=== PATIENT | female | born 1985 | race Caucasian/White ===

== ENCOUNTER 2016-08-17 07:01 | Inpatient (IN) ==
[2016-08-17] MEDS ORDERED: CARDIZEM IV ONE ×3 (07:17→07:47)
[2016-08-17] MEDS ORDERED: NS 1,000 ML IV ONE (07:17)
[2016-08-17 07:38] LABS: MANUAL DIFF NEEDED? NO
[2016-08-17 07:44] LABS: BASO% 0.1 % (0.0-0.8); EOS# 0.11 X1000 (0.0-0.7); EOS% 1.6 % (0.0-10.0); HEMATOCRIT 40.8 % (37.0-47.0); HEMOGLOBIN 13.7 g/dL (12.0-16.0); LYMPH# 2.07 X1000 (1.2-3.4); MCH 28.5 PG (27-31); MCHC 33.6 g/dL (33-37); MONO# 0.39 X1000 (0.11-0.59); MONO% 5.6 % (1.7-9.3); MPV 10.6 FL (7.4-10.4); NEUT% 62.7 % (42.2-75.2); PLT 247 X1000 (130-400)
[2016-08-17 07:54] LABS: INR 0.94; PROTIME 9.8 Seconds (9.2-11.7); PTT 26.8 Seconds (22.0-36.0)
[2016-08-17 08:04] LABS: AGAP 14; ALBUMIN 4.2 g/dL (3.5-5.0); ALKALINE PHOSPHATASE 61 U/L (32-104); BUN 15 mg/dL (8-22); CALCIUM 8.9 mg/dL (8.8-10.2); CHLORIDE 102 mmol/L (98-107); CK PROFILE 99 U/L (24-173); COSMO 283; GOT 21 U/L (10-30); GPT 23 U/L (10-36); MAGNESIUM 2.1 mg/dL (1.5-2.7); POTASSIUM 3.7 mmol/L (3.5-5.1); SODIUM 141 mmol/L (136-145); TCO2 25 mmol/L (25-35); TOTAL BILIRUBIN 0.33 mg/dL (0.20-1.00); TOTAL PROTEIN 8.3 g/dL (6.3-8.3)
[2016-08-17 08:23] LABS: URINE CULTURE NEEDED? NO; URINE MICRO REVIEW NEEDED? NO; URINE SOURCE CLEAN CATCH
[2016-08-17 08:24] LABS: BILIRUBIN URINE NEGATIVE (NEGATIVE); BLOOD URINE NEGATIVE (NEGATIVE); COLOR STRAW; GLUCOSE URINE NEGATIVE (NEGATIVE); LEUKOCYTES URINE NEGATIVE (NEGATIVE); NITRITE URINE NEGATIVE (NEGATIVE); PROTEIN URINE NEGATIVE (NEGATIVE); SP GRAVITY URINE 1.013; TURBIDITY URINE CLEAR (CLEAR); UROBILINOGEN URINE NORMAL (NORMAL)
[2016-08-17 08:24] LABS: UR AMPHETAMINES QUAL NONE DETECTED (NONE DETECT); UR BARBITUATES QUAL NONE DETECTED (NONE DETECT); UR BENZODIAZEPIN QUAL NONE DETECTED (NONE DETECT); UR CANNABINOIDS QUAL PRESUMPTIVE POSITIVE (NONE DETECT); UR COCAINE QUAL NONE DETECTED (NONE DETECT); UR METHADONE QUAL NONE DETECTED (NONE DETECT); UR OPIATES QUAL NONE DETECTED (NONE DETECT); UR OXYCODONE QUAL NONE DETECTED (NONE DETECT); UR PCP QUAL NONE DETECTED (NONE DETECT)
[2016-08-17 08:25] LABS: UR EPITHELIAL CELLS <10 /HPF (<10); URINE BACTERIA NEGATIVE /HPF; URINE RBC <10 /HPF (<10); URINE WBC <10 /HPF (<10)
[2016-08-17] MEDS: CARDIZEM 100 MG/NS 100 MG/100 ML IVPB IV SCH ×3 (08:33→09:50)
--- NOTE | 2016-08-17 08:50 | Diag Imaging Result Document ---
PROCEDURE NAME: CHEST-PORTABLE - 08/17/2016 SINGLE FRONTAL RADIOGRAPH OF THE CHEST: COMPARISON: 08/17/2012. FINDINGS: The lungs are grossly clear. There is no discrete pleural fluid collection or evidence of pneumothorax. The cardiomediastinal silhouette and upper airway are grossly unremarkable. IMPRESSION: No evidence of acute chest pathology.
[2016-08-17] MEDS ORDERED: ZOFRAN ONE (08:59)
[2016-08-17] MEDS ORDERED: ATIVAN ONE (09:00)
[2016-08-17] MEDS ORDERED: ZOFRAN IV ONE (09:10)
[2016-08-17] MEDS ORDERED: ATIVAN IV ONE (09:11)
--- NOTE | 2016-08-17 09:36 | ED EKG INTERP ---
This chart was entered by Loree Haskins Scribe, acting as scribe for Ja See MD. EKG Interpretation - EKG Time of EKG reading by physician:: 07:14 EKG Read and Signed by:: Ja See EKG Interpretation (*Must complete 3 of following elements*): Abnormal Rate: 151 Rhythm: A-FIB W/RVR Prior EKG Comparison: changes noted This chart was documented by the indicated scribe, (Loree Haskins Scribe) and accurately reflects the services I performed and decisions made by me, Ja See MD, as attested by the provider's signature.
--- NOTE | 2016-08-17 09:38 | PROVIDER DOCUMENTATION ---
This chart was entered by Loree Haskins Scribe, acting as scribe for Ja See MD. HPI-Chest Pain - General Chief Complaint: Palpitations Stated Complaint: abnormal heart rate/heaviness in chest Time Seen by Provider: 08/17/16 07:06 Source: patient Allergies/Adverse Reactions: Patient Allergies Allergy/AdvReac Type Severity Reaction Status Date / Time No Known Allergies Allergy Verified 09/12/15 17:08 Home Medications: Home Medication List Medication Instructions Recorded Confirmed Last Taken Type Zolpidem Tartrate [Ambien] 10 mg PO QHS 09/12/15 09/12/15 Unknown History Acetaminophen with Codeine 1 each PO Q6H PRN PRN #18 tablet 09/13/15 Unknown Rx [Tylenol with Codeine #3 Tablet] Ciprofloxacin HCl [Cipro] 500 mg PO BID #14 tablet 09/13/15 Unknown Rx Metronidazole [Flagyl] 500 mg PO TID #20 tablet 09/13/15 Unknown Rx Naproxen Sodium [Naprelan] 500 mg PO BID PC #60 mg 09/13/15 Unknown Rx - History of Present Illness-CP Nature of Presenting Problem: PT IS A 31YOF PRESENTING TO THE ED C/O HEART RACING. PT STATES SHE WOKE THE MORNING AND HEART HEART WAS RACING. SHE HAS SOME MINOR DISCOMFORT AND DYSPNEA BUT DENIES ANY FEVER, COUGH, N/V/D OR OTHER COMPLAINTS AT THIS TIME Location: reports: central Chest Pain Radiation: reports: no radiation Quality of Pain: reports: dull Severity in ED: moderate, severe Onset/Duration: just prior to arrival Timing: still present Context/Activities at Onset: reports: light activity Modifying Factors: improves with: nothing Associated Symptoms: reports: shortness of breath. denies: abdominal pain, diaphoresis, nausea, vomiting Nitro Today/Relief: no nitro taken today Aspirin Treatment Today: no aspirin today Prior Chest Pain/Cardiac Workup: reports: no prior chest pain Similar Symptoms Previously?: No Recently Seen Here or By Another Healthcare Provider: No Review of Systems - Adult - REVIEW OF SYSTEMS - ADULT Constitutional: reports: no symptoms reported Eyes: reports: no symptoms reported Ears, Nose, Mouth & Throat: reports: no symptoms reported Cardiovascular: reports: see HPI, chest pain, palpitations. denies: syncope Respiratory: reports: no symptoms reported Gastrointestinal: reports: no symptoms reported Genitourinary: reports: no symptoms reported Musculoskeletal: reports: no symptoms reported Integumentary: reports: no symptoms reported Neurological: reports: no symptoms reported Psychiatric: reports: no symptoms reported Endocrine: reports: no symptoms reported Hematologic/Lymphatic: reports: no symptoms reported Allergic/Immunologic: reports: no symptoms reported All Other Systems: Reviewed and Negative Past History - Adult - PAST MEDICAL HISTORY-ADULT Review of Records: reports: Old Records Reviewed, Nursing Assessment Review, Medications Reviewed, Social history reviewed & non-contributory. Major Childhood Illnesses: reports: denies history Cardiovascular: reports: HTN Respiratory: reports: denies history Gastrointestinal: reports: denies history Obstetrical/Gynecological: reports: - spont/elective Genitourinary: reports: denies history Musculoskeletal: reports: denies history Neurological: reports: denies history Endocrine/Immune: reports: denies history Other Conditions: reports: denies history - PRIOR SURGERIES/PROCEDURES Surgical/Procedure History: reports: hysterectomy, BTL, - PRIOR HOSPITALIZATIONS Prior Hospitalizations: reports: for other non-related - IMMUNIZATION STATUS Childhood Immunizations: See Nurse Assessment Flu Vaccine: See Nurse Assessment - FAMILY HISTORY Family History: reviewed, not pertinent, other (kids had RSV 3 weeks ago and strep last week) - SOCIAL HISTORY Smoking: denies, non-smoker Substance Use: none/never, denies Alcohol Use Frequency: never Living Situation: family Physical Exam-General - PHYSICAL EXAM-ADULT Initial Vital Signs Reviewed: Yes - CONSTITUTIONAL General Appearance: appears well, alert, mild distress, moderate distress, anxious. negative: no apparent distress - EYES Eyes: PERRL/EOMI, pink conjunctivae - HEAD, EARS, NOSE, MOUTH & THROAT HENMT: normocephalic/atraumatic, moist mucous membranes, normal ENT inspection, TMs normal, pharynx normal - NECK Neck: non-tender, full range of motion, supple, normal inspection - RESPIRATORY Respiratory: chest non-tender, lungs clear, normal breath sounds, no pleuratic chest pain, no respiratory distress, no accessory muscle use - CARDIOVASCULAR Cardiovascular: no edema, no gallop, no JVD, no murmur, tachycardia, other ([place] A-FIB W/RVR). negative: normal peripheral pulses, regular rate, rhythm - GASTROINTESTINAL (ABDOMEN) Abdominal Exam: normal bowel sounds, non tender, soft, no organomegaly, no pulsatile mass - LYMPHATIC Lymphatic: no adenopathy - MUSCULOSKELETAL Back Exam: normal inspection, no CVA tenderness, no vertebral tenderness Extremity: normal range of motion, non-tender, normal gait, normal inspection, no pedal edema, no calf tenderness, normal capillary refill, pelvis stable - SKIN Integumentary: normal color, normal turgor, warm/dry - NEUROLOGIC Neurologic: plaster applicator II-XII nml as tested, grossly normal, no motor/sensory deficits - PSYCHIATRIC Psych/Mental Status: normal thought content, normal thought process, oriented x 3, anxious. negative: normal mood/affect Progress - PLAN OF CARE/RESULTS Progress/Plan/Lab Results: Vital Signs - 8 hr 08/17/16 07:10 08/17/16 07:29 08/17/16 08:05 Temperature 98.3 F Pulse Rate 170 H 123 H 88 Respiratory Rate 18 22 20 Blood Pressure 157/121 156/70 155/88 O2 Sat by Pulse Oximetry 100 100 100 08/17/16 08:34 08/17/16 09:11 08/17/16 09:26 Temperature Pulse Rate 100 H 117 H 98 H Respiratory Rate 13 20 Blood Pressure 155/88 133/104 O2 Sat by Pulse Oximetry 96 99 Laboratory Results - last 24 hr 08/17/16 08/17/16 08/17/16 07:22 07:22 07:22 WBC RBC Hgb Hct MCV MCH MCHC RDW Std Deviation Plt Count MPV Immature Gran % (Auto) Neut % (Auto) Lymph % (Auto) Banner % (Auto) Eos % (Auto) Baso % (Auto) Immature Gran # (Auto) Neut # (Auto) Lymph # (Auto) Banner # (Auto) Eos # (Auto) Baso # (Auto) PT 9.8 INR 0.94 PTT (Actin FS) 26.8 D-Dimer Sodium Potassium Chloride Carbon Dioxide Anion Gap BUN Creatinine Estimated GFR/1.73 m2 BUN/Creatinine Ratio Glucose Calculated Osmolality Calcium Magnesium Total Bilirubin AST ALT Alkaline Phosphatase Creatine Kinase Troponin T < 0.010 Naq-N-Vklkgflqybf Pept 532 H Total Protein Albumin Globulin Albumin/Globulin Ratio Urine Test Urine Opiates Screen Ur Oxycodone Screen Ur Methadone, Qual Ur Barbiturates Screen Ur Phencyclidine Scrn Ur Amphetamines Screen U Benzodiazepines Scrn Urine Cocaine Screen U Cannabinoids Screen 08/17/16 08/17/16 08/17/16 07:22 07:22 07:22 WBC 6.91 RBC 4.80 Hgb 13.7 Hct 40.8 MCV 85.0 MCH 28.5 MCHC 33.6 RDW Std Deviation 12.9 Plt Count 247 MPV 10.6 H Immature Gran % (Auto) 0.0 Neut % (Auto) 62.7 Lymph % (Auto) 30.0 Banner % (Auto) 5.6 Eos % (Auto) 1.6 Baso % (Auto) 0.1 Immature Gran # (Auto) 0.00 Neut # (Auto) 4.33 Lymph # (Auto) 2.07 Banner # (Auto) 0.39 Eos # (Auto) 0.11 Baso # (Auto) 0.01 PT INR PTT (Actin FS) D-Dimer 0.16 Sodium 141 Potassium 3.7 Chloride 102 Carbon Dioxide 25 Anion Gap 14 BUN 15 Creatinine 0.7 Estimated GFR/1.73 m2 > 60 BUN/Creatinine Ratio 21 Glucose 107 H Calculated Osmolality 283 Calcium 8.9 Magnesium 2.1 Total Bilirubin 0.33 AST 21 ALT 23 Alkaline Phosphatase 61 Creatine Kinase 99 Troponin T Oov-E-Boenzjoveug Pept Total Protein 8.3 Albumin 4.2 Globulin 4.1 Albumin/Globulin Ratio 1.0 Urine Test Urine Opiates Screen Ur Oxycodone Screen Ur Methadone, Qual Ur Barbiturates Screen Ur Phencyclidine Scrn Ur Amphetamines Screen U Benzodiazepines Scrn Urine Cocaine Screen U Cannabinoids Screen 08/17/16 08/17/16 07:59 07:59 WBC RBC Hgb Hct MCV MCH MCHC RDW Std Deviation Plt Count MPV Immature Gran % (Auto) Neut % (Auto) Lymph % (Auto) Banner % (Auto) Eos % (Auto) Baso % (Auto) Immature Gran # (Auto) Neut # (Auto) Lymph # (Auto) Banner # (Auto) Eos # (Auto) Baso # (Auto) PT INR PTT (Actin FS) D-Dimer Sodium Potassium Chloride Carbon Dioxide Anion Gap BUN Creatinine Estimated GFR/1.73 m2 BUN/Creatinine Ratio Glucose Calculated Osmolality Calcium Magnesium Total Bilirubin AST ALT Alkaline Phosphatase Creatine Kinase Troponin T Gvy-M-Cgzmrifitff Pept Total Protein Albumin Globulin Albumin/Globulin Ratio Urine Test NEGATIVE Urine Opiates Screen NONE DETECTED Ur Oxycodone Screen NONE DETECTED Ur Methadone, Qual NONE DETECTED Ur Barbiturates Screen NONE DETECTED Ur Phencyclidine Scrn NONE DETECTED Ur Amphetamines Screen NONE DETECTED U Benzodiazepines Scrn NONE DETECTED Urine Cocaine Screen NONE DETECTED U Cannabinoids Screen PRESUMPTIVE POSITIVE A Orders Category Date Time Status Cardiac Monitoring DIRECTED Care 08/17/16 07:17 Active Saline Loc NOW Care 08/17/16 07:17 Active CHEST-PORTABLE [RAD] Stat Exams 08/17/16 07:17 Draft CBC WITH ELECTRONIC DIFF [HEME] Stat Lab 08/17/16 07:22 Completed CK PROFILE [SP CHEM] Stat Lab 08/17/16 07:22 Completed COMPREHENSIVE METABOLIC PANEL [CHEM] Stat Lab 08/17/16 07:22 Completed D-DIMER [CHEM] Stat Lab 08/17/16 07:22 Completed MAGNESIUM [CHEM] Stat Lab 08/17/16 07:22 Completed TEST-URINE [PREG] Stat Lab 08/17/16 07:59 Completed PRO B-NATRIURETIC PEPTIDE Stat Lab 08/17/16 07:22 Completed PROTIME WITH INR [COAG] Stat Lab 08/17/16 07:22 Completed PTT [COAG] Stat Lab 08/17/16 07:22 Completed TROPONIN T Stat Lab 08/17/16 07:22 Completed URINALYSIS W/POSS RFLX CULT-1 [URINALYSIS] Stat Lab 08/17/16 08:02 Ordered URINE DRUG SCREEN Stat Lab 08/17/16 07:59 Completed 0.9% Sodium Chloride Inj [Ns] 1,000 ml Med 08/17/16 07:17 Active IV 250 mls/hr Diltiazem 100 mg/Ns [Cardizem 100 mg/Ns] Med 08/17/16 08:18 Active 100 mg in 100 ml IV Per Protocol Diltiazem [Cardizem] Med 08/17/16 07:17 Discontinued 10 mg IV NOW ONE Diltiazem [Cardizem] Med 08/17/16 07:23 Discontinued 20 mg IV NOW ONE Diltiazem [Cardizem] Med 08/17/16 07:47 Discontinued 20 mg IV NOW ONE Lorazepam [Ativan] Med 08/17/16 09:11 Discontinued 1 mg IV NOW ONE Lorazepam [Ativan] Med 08/17/16 09:00 Discontinued 2 mg .ROUTE .STK-MED ONE Ondansetron [Zofran] Med 08/17/16 08:59 Discontinued 4 mg .ROUTE .STK-MED ONE Ondansetron [Zofran] Med 08/17/16 09:10 Discontinued 4 mg IV NOW ONE EKG [EKG] Stat Ther 08/17/16 07:13 Ordered Result Diagrams: 08/17/16 07:22 08/17/16 07:22 - REASSESSMENT Reassessment #1 Time Reassessed: 09:36 Status: improving (Pt's HR controlled. Will admit to ICU) - XRAY 1 XRAY: Bilateral XRAY Study: Chest (NAD) - CONSULTS/PCP/HOSPITALIST Notification Time Discussed: 09:37 Reason/Comments: Admit to Hospitalist Departure - Departure Time of Disposition Decision: 09:37 DIAGNOSIS: Atrial fibrillation with RVR Disposition: ADMITTED INPATIENT 09 Certified Medical Emergency: Emergent Condition: Stable Referrals and Follow-Ups: Celio Sun MD [Primary Care Provider] - - Critical Care Note This patient required my direct & personal management of CC.: Yes Total Time (mins): 30 Critical Care Statement: This patient required my direct personal management to treat or rule out processes, the absence of which, could potentiallly result in sudden, clinically significant life or limb threatening deterioration. This chart was documented by the indicated scribe, (Loree Haskins Scribe) and accurately reflects the services I performed and decisions made by me, Ja See MD, as attested by the provider's signature.
[2016-08-17 11:38] LABS: FREE T4 0.87 ng/dL (0.93-1.70)
[2016-08-17 12:34] LABS: HEMOGLOBIN A1C 4.7 % (4.8-6.0)
--- NOTE | 2016-08-17 12:53 | CONSULTATION ---
DATE OF CONSULTATION: 08/17/2016 REASON FOR CONSULTATION: A 31-year-old lady. Cardiology was consulted for atrial fibrillation. HISTORY OF PRESENT ILLNESS: She had been doing well and yesterday, last night, noticed palpitations with shortness of breath. She continued to have these episodes of palpitations, came to the emergency room, was noted to be in atrial fibrillation with a rapid ventricular rate, and started on Cardizem drip and admitted. Prior to these episodes, she has not had any chest pain or palpitations. This was her first episode of chest pain. There is no history of associated fevers, chills, nausea, or vomiting. She is otherwise active. There is no orthopnea or paroxysmal nocturnal dyspnea. She denies chest pain. She has had -induced hypertension; however, for the last year or so she did not check her blood pressure and she had not been taking her blood pressure medications as she had side effects to the same. She does not remember the name of the blood pressure medications. At the time of my examination, she was comfortable. REVIEW OF SYSTEMS: Fourteen-point review of systems was done.Gastrointestinal: There is no history of nausea, vomiting, diarrhea. There is no history of melena. Central nervous system: No focal weakness to suggest a CVA or TIA. Genitourinary: There is no dysuria or hematuria. Respiratory: There is no history of cough, expectoration, hemoptysis. There is no history of fevers or chills. PAST MEDICAL HISTORY: Has had -induced hypertension. Has not checked her blood pressure and has not been taking any medications. ALLERGIES: She is not known to be allergic to any medications. SOCIAL HISTORY: She does not smoke. There is no history of alcohol abuse. FAMILY HISTORY: She has strong family history of coronary artery disease. Her father had coronary artery bypass grafting in 50s. Her maternal grandfather has had coronary artery bypass grafting in his 50s. PHYSICAL EXAMINATION: Vital Signs: When she came to the emergency room, blood pressure was 157/121. Subsequent blood pressure at the time of my examination was 140/80. Neck: There is no thyromegaly. There is no carotid bruit. Cardiovascular: Normal jugular venous pressure. First and second heart sounds were heard. There is no S3 gallop. Respiratory: Normal air entry. There are no crepitations or rhonchi. Abdomen: Soft, obese, nontender. There was no guarding or rigidity. Bowel sounds were heard. Central nervous system: Alert and was moving all 4 extremities. Extremities: Examination of extremities revealed no pedal edema. HEENT: Asymmetric, normocephalic. Pupils were equal and reacting to light. LABORATORY EXAMINATION: First set of cardiac enzymes were negative. Hemoglobin 13.7, hematocrit 40, WBC 6.9, platelet count of 247,000. Sodium 141, potassium 3.7, BUN 15, creatinine 0.7. Magnesium was normal. Liver function tests normal. proBNP 532. Urine toxicology was positive for cannabinoids. IMAGING: Chest x-ray: No evidence of acute chest pathology. ELECTROCARDIOGRAM: Revealed atrial fibrillation, rapid ventricular rate. She is currently in sinus rhythm. Repeat electrocardiogram revealed sinus rhythm with borderline left ventricular hypertrophy. ASSESSMENT AND PLAN: Ms. Alyson Carrillo is a 31-year-old lady with history of -induced hypertension. Has had hypertension and had not been taking her medications because of side effects. She does not remember the name of medications. Had palpitations, episode of atrial fibrillation, 1st time. She has strong family history of coronary artery disease. RECOMMENDATIONS: 1. We will get an echocardiogram to assess cardiac and valvular function. 2. We will discontinue the Cardizem drip, put her on Cardizem 60 q.8 and enteric-coated aspirin. 3. If her cardiac enzymes are negative, we will set her up for a Cardiolite stress test to assess for or rule out ischemia. That can be done as an outpatient, as well. 4. As far as the etiology of the atrial fibrillation is concerned, I am not sure at the present time. This was her first episode. Electrolytes are within normal limits. We will make sure there is no ischemia. She does not have any chest pain; however, she has very strong family history of coronary artery disease in her first-degree relatives as well as, in addition, her maternal uncles in their 30s and 40s have had atrial fibrillation as well as coronary artery disease. Thank you for the consult. We will follow the hospital course. cc: Aric Alvarez MD
[2016-08-17] MEDS: MOTRIN PO PRN ×2 (13:08→22:32)
[2016-08-17] MEDS: ATIVAN IV PRN ×3 (13:09→22:34)
[2016-08-17] MEDS: CARDIZEM PO SCH ×4 (13:09→22:32)
--- NOTE | 2016-08-17 13:30 | HISTORY AND PHYSICAL ---
CHIEF COMPLAINT: Palpitations and anxiety. HISTORY OF PRESENT ILLNESS: Mrs. Carrillo is a 31-year-old, female with a history of uncontrolled hypertension and morbid obesity who presents to the ER today with acute onset of chest tightness and palpitations. She reports the symptoms woke her up out of sleep. She felt like she had just awoken from a nightmare and had severe anxiety from that however the feelings of palpitation and chest discomfort remained through the rest of the morning and she ultimately felt like she needed to come to the ER for evaluation. In the ER, she was noted to be in atrial fibrillation with a rapid ventricular response. All lab data and imaging is unremarkable. She does report some mild chest discomfort but no overt pain. She is mildly short of breath and a bit diaphoretic but she also reports she is quite anxious about all of this. Prior to this morning she has been in her normal state of health. She denies any lower extremity edema. No orthopnea. No exertional angina and no belly pain, nausea, vomiting or diarrhea. She denies any fever, chills, cough or congestion. Is also important to note that the patient had a drug screen done and it was positive for marijuana. She is currently receiving Cardizem bolus and drip and she will be transferred to the CICU for atrial fibrillation RVR. PAST MEDICAL HISTORY: 1. Morbid obesity. 2. Hypertension, controlled. 3. Marijuana abuse. SURGICAL HISTORY: She has had C-sections x4, hysterectomy, tubal ligation, D and Cs, kidney stone extraction. SOCIAL HISTORY: Patient denies tobacco, alcohol or drug use. Again her marijuana screen is positive. She has 4 children. She is a [employer] at a local al[employer]. She is single. FAMILY HISTORY: The patient has a significant family history of cardiac disease. Her father had a CVA at 32 years old. He also had subsequent myocardial infarctions and stent placements. She has an uncle that had a pacemaker placed at 17 years old. Her maternal grandfather had coronary disease at 45 years old and her aunt who is in the room at this time also has significant history of coronary disease. REVIEW OF SYSTEMS: Fourteen-point review of systems obtained and found to be negative with the exception of the HPI. HOME MEDICATIONS: None. ALLERGIES: None. PHYSICAL EXAMINATION: VITAL SIGNS: Blood pressure is 132/92, heart rate is anywhere from 120-150,2 respiratory rate is 23, O2 saturation 100% on 2 L nasal cannula. Temperature is 98.3 degrees. GENERAL: This is a morbidly obese, female, lying in hospital bed. No acute distress but she is visibly anxious. NEUROLOGIC: The patient is awake, alert, oriented. She follows commands without focal deficits. HEENT: Head is atraumatic, normocephalic. Her pupils are equal, round, reactive to light. Oral mucosa is moist. Her trachea is midline. NECK: Is supple. No JVD. No carotid bruits. CHEST: Clear to auscultation bilaterally. CV: Tachycardic and irregular. S1, S2 is noted. No murmurs, gallops, clicks, or rubs. GI: Obese, soft, nondistended, nontender. Bowel sounds are hypoactive. EXTREMITIES: With no edema, clubbing or cyanosis. Pulses are palpable bilaterally. DIAGNOSTIC DATA: Chest x-ray is negative. EKG shows atrial fibrillation RVR. WBC 6.91, hemoglobin 13.7, hematocrit 40.8, platelet count 247,000. PT 9.8, INR 0.94. D-dimer 0.16. Sodium 141, potassium 3.7, chloride is 102, CO2 25, anion gap 14, BUN 15, creatinine 0.7. Glucose 10.7 calcium 8.9, magnesium 2.1. LFTs within normal limits. Troponin and creatine kinase are negative. ProBNP 532. UA is negative for acute process. test is negative. Toxicology is positive for marijuana. ASSESSMENT AND PLAN: 1. Atrial fibrillation rapid ventricular response: Given her age, would presume induced by her marijuana use. However, she has a significant family history of cardiac disease. We are going to admit her to the CICU with telemetry. Cardizem bolus drip has been initiated and we will continue. She is going to require a full workup. We will check all electrolytes, thyroid function, rule out myocardial infarction with cardiac enzymes and check an echocardiogram. She will need a Cardiology consult. She has a [id number] score of 2 however we will defer anticoagulation to Cardiology. 2. Hypertension: Currently uncontrolled. She is on a Cardizem drip for now but she will need to be transitioned to oral antihypertensives. We will need to discuss with her risk factor modification. 3. Morbid obesity: Patient has been advised to lose weight. We will check hemoglobin A1c and lipid panel as part of her workup. We will continue to discuss lifestyle modification with her on a daily basis. 4. Marijuana dependence/abuse: We have advised the patient to quit smoking marijuana as it could be a trigger for atrial fibrillation. Will discuss with her on a daily basis. 5. DVT prophylaxis will be provided with anticoagulation per Cardiology recommendation. Further recommendations to follow. Dictated by ROXI Allen for Re Gilbert MD cc: ROXI Allen MD
--- NOTE | 2016-08-17 16:56 | ECHO REPORT ---
ORDER DATE: 08/17/2016 2D ECHOCARDIOGRAM: Technically suboptimal study. Very poor parasternal windows. As a result, measurements could not be accurately obtained. MEASUREMENTS: 1. Pulmonic valve not well visualized. 2. Aortic valve leaflets were trileaflet. 3. Mitral valve was normal. Tricuspid valve was normal. Normal left ventricular cavity size. Estimated ejection fraction of 55%-60%. Endocardium not well visualized in all views. 4. There is trace to mild mitral regurgitation, trace tricuspid regurgitation. Peak velocity across the aortic valve less than 2 m/sec. By Doppler studies there is no aortic stenosis or regurgitation. 5. There is no pericardial effusion or obvious intracardiac mass or thrombus seen. cc: Aric Alvarez MD
[2016-08-18 05:48] LABS: HEMATOCRIT 36.2 % (37.0-47.0); HEMOGLOBIN 11.9 g/dL (12.0-16.0); MCH 28.4 PG (27-31); MCHC 32.9 g/dL (33-37); MCV 86.4 FL (81-99); MPV 10.6 FL (7.4-10.4); RBC 4.19 XMIL (4.2-5.4)
[2016-08-18 05:55] LABS: AGAP 8; BUN 18 mg/dL (8-22); CALCIUM 8.9 mg/dL (8.8-10.2); CHLORIDE 106 mmol/L (98-107); COSMO 281; HDL 44 mg/dL (45-65); LDL 131 mg/dL; POTASSIUM 4.3 mmol/L (3.5-5.1); SODIUM 140 mmol/L (136-145); TCO2 26 mmol/L (25-35); TRIGLYCERIDES 123 mg/dL (35-135); VLDL 25 mg/dL
[2016-08-18] MEDS: CARDIZEM PO SCH (09:44)
[2016-08-18] MEDS: ATIVAN IV PRN (09:50)
[2016-08-18 11:48] VITALS: BP 133/86
--- NOTE | 2016-08-19 06:02 | EKG Report ---
Test Performed on : 08/17/2016 12:12:55 PM Test Reason : afib Blood Pressure : / mmHG Vent. Rate : 078 BPM Atrial Rate : 078 BPM P-R Int : 142 ms QRS Dur : 092 ms QT Int : 370 ms P-R-T Axes : -05 -01 029 degrees QTc Int : 421 ms Normal sinus rhythm. Minimal voltage criteria for LVH, may be normal variant Borderline ECG When compared with ECG of 17-AUG-2016 07:14, Sinus rhythm. has replaced Atrial fibrillation. Vent. rate has decreased BY 73 BPM Nonspecific T wave abnormality no longer evident in Lateral leads Confirmed by Marie JIMENES, Catarino Sorto ([id number]) on 08/19/2016 11:21:41 AM
--- NOTE | 2016-08-19 06:12 | EKG Report ---
Test Performed on : 08/17/2016 07:14:25 AM Test Reason : Blood Pressure : / mmHG Vent. Rate : 151 BPM Atrial Rate : 150 BPM P-R Int : 000 ms QRS Dur : 090 ms QT Int : 292 ms P-R-T Axes : 000 002 070 degrees QTc Int : 462 ms Atrial fibrillation. with rapid ventricular response. Abnormal ECG No previous ECGs available Unconfirmed Result
[2016-08-19] MEDS ORDERED: CARDIZEM CD PO SCH (09:00)
--- NOTE | 2016-08-20 19:29 | DISCHARGE SUMMARY ---
ADMISSION DATE: 08/17/2016 DISCHARGE DATE: 08/18/2016 FINAL DISCHARGE DIAGNOSES: 1. New onset atrial fibrillation. 2. Morbid obesity. 3. Hypertension. CONSULTATIONS REQUESTED DURING THIS HOSPITAL STAY: Cardiology consultation with Dr. Alvarez. HOSPITAL COURSE: Ms. Carrillo is a 31-year-old female with a history of morbid obesity and hypertension who presented to the emergency room with a chief complaint of palpitations and severe anxiety. Upon arrival to the emergency room, the patient was noted to be in atrial fibrillation with rapid ventricular response. The patient was placed on a Cardizem drip and admitted to the Cardiac Intensive Care Unit. After initiation of the Cardizem drip, the patient converted to normal sinus rhythm. The patient was seen by the back seam stitcher, who ordered an echocardiogram. The echocardiogram was noted to be unremarkable. The patient was then transitioned to oral Cardizem and instructed to follow up the following day for a nuclear stress test. The patient was cleared for discharge home on 07/19/2016. DISCHARGE MEDICATIONS: Cardizem CD 120 mg oral daily. DISCHARGE DIET: Low sodium diet. ACTIVITY: As tolerated. FOLLOWUP INSTRUCTIONS: The patient will need to follow up with Dr. Alvarez on 08/19/2016 as scheduled for a nuclear stress test. cc: Re Gilbert MD
== END 2016-08-18 15:05 | disposition home or self-care (01) ==
LOC: ED 07:01 → 3S 11:03
PROVIDERS: ATTEND Internal Medicine

== ENCOUNTER 2019-03-26 16:36 | Day surgery (SDC) ==
[2019-03-26] MEDS ORDERED: NS 1,000 ML IV ONE ×3 (16:52→19:18)
[2019-03-26] MEDS ORDERED: NS 500 ML IV ONE (16:52)
[2019-03-26] MEDS ORDERED: NS 2,000 ML ONE (16:53)
[2019-03-26 17:39] LABS: INR 1.03; PROTIME 13.6 Seconds (11.0-16.0)
--- NOTE | 2019-03-26 17:39 | Diag Imaging Result Doc PS360 ---
EXAM: CHEST-1 VIEW 03/26/2019 HISTORY: sepsis TECHNIQUE: Erect AP portable at 1725 COMMENT: There is a granuloma in the right upper lobe. There is no evidence of acute cardiac or pulmonary disease. Compared to 02/09/2018 there has been no significant change. IMPRESSION: No acute disease. Electronically signed by Cain Gee 03/26/2019 5:37 PM
[2019-03-26 17:40] LABS: BASO# 0.02 X1000 (0.0-0.2); BASO% 0.1 % (0.0-0.8); HEMATOCRIT 37.8 % (37.0-47.0); HEMOGLOBIN 12.9 g/dL (12.0-16.0); IMM GRAN# 0.04 X1000 (0.0-0.04); IMM GRAN% 0.2 % (0.0-0.5); LYMPH% 7.9 % (20.5-51.1); MCH 29.6 PG (27-31); MCHC 34.1 g/dL (33-37); MCV 86.7 FL (81-99); MONO# 0.69 X1000 (0.11-0.59); MONO% 3.9 % (1.7-9.3); MPV 10.9 FL (7.4-10.4); NEUT# 15.61 X1000 (1.4-6.5); NEUT% 87.9 % (42.2-75.2); PLT 314 X1000 (130-400); RBC 4.36 XMIL (4.2-5.4); RDW 12.2 % (11.5-14.5); WBC 17.76 X1000 (4.8-10.8)
[2019-03-26 17:51] LABS: AGAP 18; ALB/GLOB RATIO 1.8; ALBUMIN 4.2 g/dL (3.5-5.0); ALKALINE PHOSPHATASE 48 U/L (32-104); BUN 12 mg/dL (8-22); CALCIUM 9.6 mg/dL (8.8-10.2); CHLORIDE 97 mmol/L (98-107); COSMO 278; CREATININE 0.7 mg/dL (0.5-0.9); ESTIMATED GFR > 60; GLUCOSE 151 mg/dL (70-104); GOT 12 U/L (10-30); GPT 10 U/L (10-36); POTASSIUM 3.2 mmol/L (3.5-5.1); SODIUM 138 mmol/L (136-145); TCO2 23 mmol/L (25-35); TOTAL BILIRUBIN 0.89 mg/dL (0.20-1.00); TOTAL PROTEIN 6.6 g/dL (6.3-8.3)
[2019-03-26] MEDS ORDERED: DILAUDID IV ONE (17:53)
[2019-03-26] MEDS ORDERED: NORCO-10 PO PRN (18:11)
[2019-03-26] MEDS ORDERED: D5 1/2 NS + KCL 20 MEQ 1,000 ML IV SCH (18:15)
--- NOTE | 2019-03-26 18:29 | PROVIDER DOCUMENTATION ---
This chart was entered by Ana Burciaga Scribe, acting as scribe for Gissel Soto MD. HPI-General Adult - General Chief Complaint: Post Op Complaint Stated Complaint: POST OP COMPLAINT DR DURON Time Seen by Provider: 03/26/19 16:45 Source: family Allergies/Adverse Reactions: Patient Allergies Allergy/AdvReac Type Severity Reaction Status Date / Time morphine AdvReac HEADACHE Verified 03/25/19 15:31 NSAIDS (Non-Steroidal AdvReac DUE TO Verified 03/25/19 15:32 Anti-Inflamma GASTRIC SLEEVE Home Medications: Home Medication List Medication Instructions Recorded Confirmed Last Taken Type Dicyclomine HCl 20 mg PO Q6H PRN 03/25/19 03/25/19 03/25/19 21:00 History Lisinopril 20 mg PO DAILY 03/25/19 03/25/19 03/25/19 08:00 History Promethazine [Phenergan] 25 mg PO PRN PRN 03/25/19 03/25/19 03/25/19 21:00 History Hydrocodone/Acetaminophen [[place] 1 ea PO Q6H PRN PRN #20 tab 03/26/19 Unknown Rx 10-325 Tablet] Ondansetron HCl [Zofran] 4 mg PO Q4H PRN PRN #10 tab 03/26/19 Unknown Rx - History of Present Illness -Gen Adult Nature of Presenting Problems: Patient is a 34 y/o female presenting to the ED today c/o post-operative complications. Patient's parents provide history. Patient had a mass excised from her abdomen in an outpatient procedure with Dr. Emmanuel this morning. Patient has had hardening of abdomen, dizziness, and increased pain since discharge around 1400 today. Patient is not taking a blood thinner. Patient has history of hypertension. Patient denies smoking or drinking history. Patient denies all other signs/symptoms. Location of Pain/Injury: reports: abdomen Onset/Duration: reports: 4-6 hours ago Timing: reports: still present, getting worse Context/Activities at Onset: reports: other (surgery today - mass excised) Modifying Factors: improves with: nothing Associated Symptoms: reports: denies symptoms Similar Symptoms Previously?: No Recently seen or treated by another doctor?: No Review of Systems - Adult - REVIEW OF SYSTEMS - ADULT Constitutional: reports: no symptoms reported. denies: fever Eyes: reports: no symptoms reported Ears, Nose, Mouth & Throat: reports: no symptoms reported Cardiovascular: denies: chest pain Respiratory: denies: shortness of breath Gastrointestinal: reports: abdominal pain Genitourinary: reports: no symptoms reported Musculoskeletal: reports: no symptoms reported Integumentary: reports: no symptoms reported Neurological: denies: dizziness/vertigo Psychiatric: reports: no symptoms reported Endocrine: reports: no symptoms reported Hematologic/Lymphatic: reports: no symptoms reported Allergic/Immunologic: reports: no symptoms reported Past History - Adult - PAST MEDICAL HISTORY-ADULT Review of Records: reports: Nursing Assessment Review Major Childhood Illnesses: reports: denies history Cardiovascular: reports: A-Fib, HTN Respiratory: reports: denies history Gastrointestinal: reports: denies history Obstetrical/Gynecological: reports: - spont/elective Genitourinary: reports: kidney stones Musculoskeletal: reports: denies history Neurological: reports: denies history Endocrine/Immune: reports: denies history Other Conditions: reports: denies history - PRIOR SURGERIES/PROCEDURES Surgical/Procedure History: reports: hysterectomy, BTL, , other (gastric sleeve) - PRIOR HOSPITALIZATIONS Prior Hospitalizations: reports: for other non-related - IMMUNIZATION STATUS Childhood Immunizations: See Nurse Assessment Flu Vaccine: See Nurse Assessment - FAMILY HISTORY Family History: reviewed, not pertinent, other (kids had RSV 3 weeks ago and strep last week) Physical Exam-General - PHYSICAL EXAM-ADULT Initial Vital Signs Reviewed: Yes - CONSTITUTIONAL General Appearance: alert, moderate distress, slow to respond - EYES Eyes: PERRL/EOMI - HEAD, EARS, NOSE, MOUTH & THROAT HENMT: normocephalic/atraumatic, normal ENT inspection - NECK Neck: supple - RESPIRATORY Respiratory: lungs clear, normal breath sounds - CARDIOVASCULAR Cardiovascular: normal peripheral pulses, tachycardia - GASTROINTESTINAL (ABDOMEN) Abdominal Exam: tenderness (diffuse, predominantly in LLQ), other (subcutaneous hematoma noted in LLQ, firm) - MUSCULOSKELETAL Back Exam: no CVA tenderness, no vertebral tenderness Extremity: normal range of motion, normal inspection - SKIN Integumentary: normal turgor, diaphoresis - NEUROLOGIC Neurologic: grossly normal - PSYCHIATRIC Psych/Mental Status: normal mood/affect, normal thought content, normal thought process, oriented x 3 Progress - PLAN OF CARE/RESULTS Progress/Plan/Lab Results: Vital Signs - 8 hr 12//19 16:38 Temperature 98.3 F Pulse Rate 133 H Respiratory Rate 22 Blood Pressure 125/88 O2 Sat by Pulse Oximetry 99 Orders Category Date Time Status 0.9% Sodium Chloride Inj [Ns] 2,000 ml Med 03/26/19 16:53 Discontinued .ROUTE As directed Result Diagrams: 03/26/19 16:57 03/26/19 16:57 - XRAY 1 XRAY Study: Chest Impression: See EMR Report (EXAM: CHEST-1 VIEW 03/26/2019 HISTORY: sepsis TECHNIQUE: Erect AP portable at 1725 COMMENT: There is a granuloma in the right upper lobe. There is no evidence of acute cardiac or pulmonary disease. Compared to 02/09/2018 there has been no significant change. IMPRESSION: No acute disease. Electronically signed by aCin Gee 03/26/2019 5:37 PM [id number] Interpreting Physician: Cain Gee MD Dictated Date/Time: 03/26/19 173 cc: Gissel Soto MD; None,PCP) - CONSULTS/PCP/HOSPITALIST Notification #1 *Consult/PCP/Hospitalist*: Dr Dorantes Time Discussed: 17:05 Consult Disposition: Will see in ED Departure - Departure Date of Disposition Decision: 03/26/19 Time of Disposition Decision: 18:28 DIAGNOSIS: Abdominal wall hematoma Qualifiers: Encounter type: initial encounter Qualified Code(s): S30.1XXA - Contusion of abdominal wall, initial encounter Disposition: ADMITTED INPATIENT 09 Certified Medical Emergency: Emergent Condition: Good Referrals and Follow-Ups: None,PCP [Primary Care Provider] - - Critical Care Note This patient required my direct & personal management of CC.: Yes Attestation - Physician/ TA Attestation Patient care was provided by Advanced Practice Provider:: No The physician spent face to face time with patient:: Yes Advanced Practice Provider documentation review:: Supervising physician onsite and consulted in the evaluation and care of this patient. The physician did have a face to face encounter with the patient. This chart was documented by the indicated scribe, (Ana Burciaga, Miguelangel) and accurately reflects the services I performed and decisions made by me, Isak Soto MD, as attested by the provider's signature.
[2019-03-26] MEDS: KEFZOL 1 GM/D5W 1 GM/50 ML IVPB IV SCH (18:57)
[2019-03-26 20:11] LABS: BASO# 0.01 X1000 (0.0-0.2); BASO% 0.1 % (0.0-0.8); HEMATOCRIT 29.7 % (37.0-47.0); HEMOGLOBIN 9.9 g/dL (12.0-16.0); LYMPH# 1.06 X1000 (1.2-3.4); LYMPH% 6.9 % (20.5-51.1); MCH 29.6 PG (27-31); MCHC 33.3 g/dL (33-37); MCV 88.9 FL (81-99); MONO# 0.54 X1000 (0.11-0.59); MONO% 3.5 % (1.7-9.3); MPV 10.6 FL (7.4-10.4); NEUT# 13.71 X1000 (1.4-6.5); NEUT% 89.5 % (42.2-75.2); PLT 218 X1000 (130-400); RBC 3.34 XMIL (4.2-5.4); RDW 12.2 % (11.5-14.5); WBC 15.32 X1000 (4.8-10.8)
[2019-03-26] MEDS ORDERED: HYDROGEN PEROXIDE SOLUTION ONE (20:58)
[2019-03-26 21:23] LABS: HEMATOCRIT 27.8 % (37.0-47.0); HEMOGLOBIN 9.3 g/dL (12.0-16.0)
[2019-03-26] MEDS ORDERED: BENTYL PO PRN (22:33)
[2019-03-26] MEDS ORDERED: PHENERGAN PO PRN (22:33)
[2019-03-26] MEDS ORDERED: ZOFRAN PO PRN (22:33)
[2019-03-26 23:35] LABS: URINE SOURCE CLEAN CATCH
[2019-03-26 23:39] LABS: BILIRUBIN URINE NEGATIVE (NEGATIVE); BLOOD URINE NEGATIVE (NEGATIVE); COLOR YELLOW; GLUCOSE URINE NEGATIVE (NEGATIVE); KETONE URINE 40 mg/dL (NEGATIVE); LEUKOCYTES URINE NEGATIVE (NEGATIVE); NITRITE URINE NEGATIVE (NEGATIVE); PH URINE 6.5; PROTEIN URINE TRACE mg/dL (NEGATIVE); SP GRAVITY URINE 1.024; TURBIDITY URINE CLEAR (CLEAR); UROBILINOGEN URINE NORMAL (NORMAL)
[2019-03-26 23:40] LABS: UR EPITHELIAL CELLS <10 /HPF (<10); URINE BACTERIA NEGATIVE /HPF; URINE RBC <10 /HPF (<10); URINE WBC <10 /HPF (<10)
[2019-03-27] MEDS: KEFZOL 1 GM/D5W 1 GM/50 ML IVPB IV SCH ×2 (01:57→09:19)
[2019-03-27] MEDS: D5 1/2 NS + KCL 20 MEQ 1,000 ML IV SCH ×2 (01:57→06:58)
[2019-03-27] MEDS: DILAUDID IV PRN ×3 (02:04→09:24)
[2019-03-27] MEDS: ZOFRAN IV PRN ×2 (02:04→06:22)
[2019-03-27 07:41] LABS: BASO# 0.01 X1000 (0.0-0.2); BASO% 0.1 % (0.0-0.8); HEMATOCRIT 25.2 % (37.0-47.0); HEMOGLOBIN 8.2 g/dL (12.0-16.0); IMM GRAN# 0.02 X1000 (0.0-0.04); IMM GRAN% 0.2 % (0.0-0.5); LYMPH# 1.16 X1000 (1.2-3.4); LYMPH% 13.8 % (20.5-51.1); MCHC 32.5 g/dL (33-37); MONO# 0.67 X1000 (0.11-0.59); MPV 10.6 FL (7.4-10.4); NEUT# 6.54 X1000 (1.4-6.5); NEUT% 77.9 % (42.2-75.2); PLT 188 X1000 (130-400); RBC 2.83 XMIL (4.2-5.4); RDW 11.9 % (11.5-14.5)
[2019-03-27 08:14] LABS: AGAP 13; BUN 9 mg/dL (8-22); CALCIUM 8.4 mg/dL (8.8-10.2); CHLORIDE 103 mmol/L (98-107); COSMO 278; CREATININE 0.5 mg/dL (0.5-0.9); ESTIMATED GFR > 60; GLUCOSE 127 mg/dL (70-104); POTASSIUM 3.3 mmol/L (3.5-5.1); SODIUM 139 mmol/L (136-145); TCO2 23 mmol/L (25-35)
[2019-03-27 08:27] VITALS: BP 119/68
[2019-03-27] MEDS ORDERED: PRINIVIL PO SCH (09:00)
--- NOTE | 2019-03-27 22:10 | OPERATIVE NOTE ---
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 PROCEDURE PERFORMED: Open exploration and evacuation of hematoma with placement of a [place]- [place] drain. DESCRIPTION OF PROCEDURE: The patient was brought to the operating room after satisfactory induction of IV and endotracheal anesthesia. Her lower abdomen was prepped and draped in the appropriate manner. There was a large subcutaneous hematoma beneath the skin milena. The skin milena were removed with evacuation of approximately 500 mL of clot. The wound was irrigated, some smaller bleeding points were electrocoagulated, there was no arterial bleeding encountered. The wound was subsequently closed around the West-Ramirez drain in layers of 3-0 Vicryl. The skin itself was closed with stainless steel clips. The [place]-Ramirez was anchored with 0 silk. Sterile dressing was applied. She was awakened and extubated in the operating room and transferred to recovery. cc: Mauro Gentile MD
== END 2019-03-27 11:18 | disposition home or self-care (01) ==
LOC: ED 16:36 → INTOOBSV 20:07 → OPS 20:07 → 4N 20:07 → OPS 03-27 11:18
PROVIDERS: ATTEND Surgery
PROC: GE.EXPL (2019-03-26 20:24)